=== PATIENT | female | born 1930 | race Asian ===

== ENCOUNTER → 2018-08-19 | Outpatient (CLI) | payer MEDICARE, OTHER ==
[2018-04-07 11:00] VITALS: BP 122/78
[~2018-08-19] MED LIST: AMLO5TAB10 PO; HYDR-2761 PO; LISI10TA2 PO; OXYB5TAB7 PO; TRAM50TA PO
== END | disposition home or self-care (01) ==
LOC: OPS 09:59
PROVIDERS: ATTEND Family Medicine
DX: R33.9 Retention of urine, unspecified (principal)
CPT/HCPCS: 51798

== ENCOUNTER → 2018-08-29 | Outpatient (CLI) | payer MEDICARE, OTHER ==
[2018-04-07 11:00] VITALS: BP 122/78
--- NOTE | 2018-08-29 11:46 | KCIC ---
MRI Lumbar Spine without contrast History: Lower extremity weakness bilaterally, history of cervical cancer and radiation, fall December 2017, low back pain into the left leg and hip Technique: Multiplanar, multi sequential noncontrast MR imaging was performed of the lumbar spine. Comparison: There is no previous MRI exam available, correlation made with August 12, 2018 lumbar spine radiographs Findings: There is some motion degradation. There is L1 compression fracture with some edema more anteriorly signified by STIR hyperintense and T1 hypointense signal, minimal osseous retropulsion superiorly without spinal stenosis. There is old compression deformity inferiorly of L2, centrally and superiorly of L3, also superiorly of L4. There is prominent edema of the visualized right sacrum and to a lesser degree on the left. There is negligible anterior spondylolisthesis at T12-L1. There is grade 1 anterior spondylolisthesis at L4-5 and L5-S1. There is bilateral L5 spondylolysis. There is fairly advanced degenerative disc disease L5-S1 and greater posteriorly at L3-4, mild degenerative disc disease at L1-L2, L2-3, and moderate degenerative disc disease greater posteriorly at L4-5. Conus terminates near T12-L1. T12-L1: Neural foramina and spinal canal are adequate. There is mild buckling of the ligamentum flavum. L1-L2: There is mild facet degenerative change and buckling of the ligamentum flavum. There is minimal posterior narrowing of the left neural foramen, right neural foramen adequate. Spinal canal is adequate. L2-L3: There is disc osteophyte complex and bulge. There is [id number] buckling of the ligamentum flavum. There is mild facet degenerative change. There is mild narrowing of the far left lateral recess. There is mild narrowing of the left neural foramen, right neural foramen not significantly narrowed. L3-L4: There is moderate to severe buckling of the ligamentum flavum and mild facet degenerative change. There is broad posterior disc osteophyte complex and superimposed broad protrusion. Combination of findings results in fairly severe spinal stenosis with left greater than right lateral recess stenosis, some preserved subarachnoid space. There is contact of the descending L4 nerve roots in the lateral recesses. There is moderate to severe narrowing of the right neural foramen with contact exiting right L3 nerve root, inferior narrowing by disc osteophyte complex. There is mild narrowing of the left neural foramen. L4-L5: There is moderate facet hypertrophic change. There is ccdo-mo-memqchag buckling of the ligamentum flavum on the left, minimally on the right. There is mild partial uncovering of the posterior aspect of the disc due to spondylolisthesis, superimposed disc osteophyte complex. There is moderate narrowing of the far lateral recess, contact descending left L5 nerve root. There is severe narrowing of the right neural foramen with contact exiting right L4 nerve root. Left neural foramen is adequate. L5-S1: There is moderate facet degenerative change. Spinal canal is adequate. There is mild partial uncovering of the posterior aspect of the disc due to spondylolisthesis and superimposed minimal disc ossify complex. There is fairly severe narrowing of the left neural foramen with contact exiting left L5 nerve root, moderate narrowing on the right with contact undersurface exiting right L5 nerve root. Impression: 1. There is edema associated with L1 compression fracture more anteriorly. This is possibly due to more recent fracture superimposed on chronic fracture given more isolated edema anteriorly. There are recent sacral fractures bilaterally greater on the right. There are old compression fractures L2-L4. 2. There is abnormal alignment most notable grade 1 anterior spondylolisthesis at L4-5 and L5-S1. There is bilateral L5 spondylolysis. 3. There is multilevel variable degenerative disc disease greatest L3-4 and L5-S1. 4. There is multilevel neural foramina compromise, more significant narrowing left greater than right at L5-S1 and on the right at L4-5 and L3-4. Electronically signed by: Jagdish Rodriguez MD (08/29/2018 11:43 AM) [facility]
--- NOTE | 2018-08-29 15:04 | KCIC ---
Indication: Postmenopausal screening for osteoporosis. COMPARISON: None available. Bone Density: -BMD: (g/cm2) - AP Spine Total (L1-L4).......... 0.636. - Total right Hip................. 0.478. T-Score: - AP Spine Total (L1-L4)......... -3.7. - Total right Hip................. -3.8. World Health Organization criteria for BMD interpretation classify patients as Normal (T-score at or above -1.0), Osteopenic (T-score between -1.0 and -2.5), or Osteoporotic (T-score at or below -2.5). Impression: 1. AP Spine Total L1-L4--- osteoporosis. 2. Total right Hip--- osteoporosis. Electronically signed by: Scott Castro MD (08/29/2018 3:01 PM) [email or web address]
== END | disposition home or self-care (01) ==
LOC: KCIC MRI 09:01
PROVIDERS: ATTEND Family Medicine
DX: M81.0 Age-related osteoporosis without current pathological fracture (principal); M48.56XA Collapsed vertebra, not elsewhere classified, lumbar region, initial encounter for fracture; M43.17 Spondylolisthesis, lumbosacral region; M43.15 Spondylolisthesis, thoracolumbar region; M51.37 Other intervertebral disc degeneration, lumbosacral region; M48.07 Spinal stenosis, lumbosacral region; N95.9 Unspecified menopausal and perimenopausal disorder; Z85.41 Personal history of malignant neoplasm of cervix uteri; Z92.3 Personal history of irradiation
CPT/HCPCS: 72148; 77080

== ENCOUNTER → 2018-10-20 | Outpatient (CLI) | payer MEDICARE, MEDICAID ==
[2018-04-07 11:00] VITALS: BP 122/78
--- NOTE | 2018-10-20 23:38 | PAIN ---
DATE OF SERVICE: 10/20/2018 INITIAL CONSULTATION FOR PAIN CLINIC CHIEF COMPLAINT: Low back and right lower extremity pain. HISTORY OF PRESENT ILLNESS: This is an 88-year-old female who presents with pain after falling since December 2017 and pain has been present. The patient's son is with her and serves as quenching car operator as the patient is Laotian and does not speak Israeli. The patient reports the pain is getting worse over the past year or so in the low back, right lower extremity, posterior gluteus, posterior lateral thigh, lateral anterior thigh, anterior medial thigh, medial ankle and into the posterior calf as well as the right leg, but not into the foot or toes. The patient reports it is stabbing with numbness and radiating into the right leg and foot, worse with walking and standing. The patient reports it awakens her from sleep about 5-7 times at night. It does not affect her bowel or bladder control, but does affect her ability to walk. She is using a walker or wheelchair combination today. The patient is taking pain medication that does decrease the pain, she is not certain of the name of it at this time and that is pending at time of this dictation. The patient did have an MRI scan of the lumbar spine dated 08/29/2018 showing moderate facet hypertrophic changes at L3-L4, L4-L5 and L5-S1 with severe spinal stenosis, previous broad-based posterior disk osteophyte complex at L3-L4 contacting the descending L4 nerve root and lateral recess with moderate to severe narrowing of the right neural foramen with contact at exiting right L3 nerve root. L4-L5 shows significant stenosis as well with severe narrowing of the right neural foramen with contacting the right L4 nerve root and moderate narrowing of the far lateral recess contacting descending left L5 nerve root. L5-S1 shows moderate facet change and degenerative change, fairly severe narrowing at L5-S1 on the left neural foramen with contacting the exiting left L5 nerve root and moderate narrowing of the right with contacting dorsal surface of exiting right L5 nerve root. The patient's disability rate is from 0-10, 10 being the worst, is a 10 with family and home responsibilities, 8 with recreation, 9 with occupation and 9 with self-care activities. The patient has done physical therapy, which was not significantly helpful. This was done as a home physical therapy service in December 2017, also doing exercise since that time as well and continues to do the stretching exercises without significant decrease in pain. The patient reports no loss of motor function, but significant fatigability in the right leg with walking, standing and changing positions. The patient describes the pain as stabbing with numbness and radiation. PAST MEDICAL HISTORY: Significant for hearing loss, previous left hip fracture, which was fixed surgically. Otherwise, the patient has been in fairly good health by her report. CURRENT MEDICATIONS: Complete, full and well documented on the patient's chart. ALLERGIES: The patient has no known drug allergies. FAMILY HISTORY: Significant for no major medical problems or conditions that she lists. SOCIAL HISTORY: The patient does not drink alcohol, does not smoke and does not use any illegal, illicit or recreational drugs. Lives with her son locally in [place], [place] and is . REVIEW OF SYSTEMS: The patient's review of systems is positive for those items mentioned in history of present illness. All systems reviewed and otherwise negative. It is complete, full and well documented on the patient's chart. PHYSICAL EXAMINATION: VITAL SIGNS: The patient's blood pressure is 133/71, pulse 51, respirations 18, temperature is 98.1 degrees Fahrenheit. Height is 5 feet 1 inch, weight 97 is pounds. GENERAL: The patient is awake, alert, oriented, appropriate, very pleasant demeanor. Again, the patient is accompanied by her son who serves as border patrol officer. HEEN: Head shows normocephalic, atraumatic. Extraocular movements are intact and symmetrical. Oral cavity: Mucous membranes are moist and pink. Dentition is intact. NECK: Shows anterior throat supple without palpable lymphadenopathy noted. Swallow reflex symmetrical. CHEST: Shows normal with inspection. Breath sounds clear to auscultation bilaterally. HEART: Shows S1, S2 clear. No murmurs auscultated. ABDOMEN: Soft, nontender, nondistended. No palpable organomegaly is noted. No rebound or guarding demonstrated. BACK: Shows spine grossly in the midline. Normal appearing thoracic kyphosis and minor flattening of lumbar lordotic curvature. Lumbar paraspinous muscle shows symmetrical on inspection, on palpation shows some moderate tenderness diffusely, but only diffusely without significant radiation. The patient's lower extremities show deep tendon reflexes at 1+ in the patellar and tendo calcaneus tendons are equal. Motor exam is approximately 4 on a scale of 5 on the right, 5/5 on the left with dorsiflexion, extension, quadriceps and hamstring flexion. Peripheral pulses are 1+ posterior tibial. No peripheral edema is noted bilaterally. The patient's straight leg raise is noted to be positive on the right at about 35 degrees. Left side is negative. Gaenslen's and Arnav's maneuvers are negative bilaterally. The patient is able to stand, stand on her toes, but is very unstable and is unsure of redirections when asked to do this. She is ambulating with a significant shuffling gait, does appear to favor the right lower extremity and using a walker to ambulate, which she has with her now. SKIN: Shows warm and dry, good turgor. No edema. No sores, rashes or bruises noted. IMPRESSION: 1. This is an 88-year-old female with approximately 1-year history of pain, low back, right lower extremity in a radicular fashion. 2. MRI scan of lumbar spine as noted. PLAN: Options were discussed with the patient including conservative medical management, physical therapy, interventional techniques and she would like to pursue interventional techniques. We discussed a lumbar epidural steroid injection using description as well as anatomical models to describe the procedure today. Risks were then discussed including, but not limited to, bleeding, infection, possibility of epidural hematoma, subsequent neurological compromise, dural puncture, headaches, spinal cord and/or nerve damage, side effects of steroid medication and poor results regarding pain control. The patient understands and wished to proceed. The patient will return to the clinic in approximately 2 weeks for followup, was counseled as to return appointment, activity level and side effects to be aware of. DIAGNOSES: Lumbar radiculopathy with lumbar degenerative disk disease and lumbar spinal stenosis. PROCEDURE: Lumbar epidural steroid injection, translaminar approach at L4-L5 level using C-arm fluoroscopic guidance under sterile prep and drape using local anesthetic. MEDICATION INJECTED: A total of 120 mg Depo-Medrol plus 10 mL of preservative-free normal saline and 2 mL of Isovue for contrast. CONDITION ON DISCHARGE: Stable. The patient tolerated the procedure well, had no complications. RADHA FERGUSON MD DR: SANTO/thu JOB#: [id number] / [id number] SALEEM Salazar MD
== END ==
LOC: PNCL 08:43
PROVIDERS: ATTEND Anesthesiology
DX: M51.16 Intervertebral disc disorders with radiculopathy, lumbar region (principal); M48.061 Spinal stenosis, lumbar region without neurogenic claudication; Z98.890 Other specified postprocedural states
CPT/HCPCS: 62323

== ENCOUNTER → 2018-10-22 | Outpatient (CLI) | payer MEDICARE, MEDICAID ==
[2018-04-07 11:00] VITALS: BP 122/78
[~2018-10-22] MED LIST changes: +MIDAZOLAM HCL/PF 5 MG/5 ML VIAL. ONE; +fentaNYL PF VIAL 250 MCG/5 ML VIAL ONE
--- NOTE | 2018-10-22 08:39 | NUR ---
Pt procedure cancelled per Dr Thakur, family and pt spoke to MD and pt released to home. DEJAN MCGOWAN
--- NOTE | 2018-10-22 09:14 | PDOC ---
Provider Note Provider Note IR NOTE (Brief) I saw Mrs Moffett in consultation for possible L1 vertebral augmentation. Her son was present and served as a mud analysis supervisor during the encounter. She had a fall with multiple fractures last fall. She has had ongoing pain since then. For me, she describes the pain as predominantly in her right buttock and right lower extremity. The pain is paroxysmal and limits ambulation. She also notes some intermittent left lower extremity numbness. She denies back pain iver the L1 level, or at the thoracolumbar junction at current time, or in the recent past. No tenderness in the area was found with palpation, or motion, though this did illicit RLE pain. We reviewed her MRI and the indications, risks , and benefits of vertebral augmentation. We talked about her DEXA scan. She is not a good candidate for vertebral augmentation at this time, mainly due to her lack of symptoms. I explained that she is high risk for subsequent fractures given her severe bone demineralization, and her Son relayed that they are working with her other doctors on this. She is free to follow up with me with any further questions/concerns. JUSTINA HENRY MD Oct 22, 2018 09:14
== END ==
LOC: INTRAD 08:04
PROVIDERS: ATTEND Neurological Surgery
DX: M54.5 Low back pain (principal); Z53.8 Procedure and treatment not carried out for other reasons

== ENCOUNTER → 2018-11-03 | Outpatient (CLI) | payer MEDICARE, MEDICAID ==
[2018-04-07 11:00] VITALS: BP 122/78
[~2018-11-03] MED LIST changes: +IOHEXOL 180 MG/ML 10 ML VIAL. ONE; -MIDAZOLAM HCL/PF 5 MG/5 ML VIAL. ONE; -fentaNYL PF VIAL 250 MCG/5 ML VIAL ONE; +methylPREDNISolone ACETATE 40 MG/ML VIAL. ONE; +methylPREDNISolone ACETATE 80 MG/ML VIAL. ONE
--- NOTE | 2018-11-03 10:29 | PAIN ---
DATE OF SERVICE: 11/03/2018 PROGRESS NOTE FOR PAIN CLINIC DIAGNOSES: Lumbar radiculopathy with lumbar degenerative disk disease and lumbar spinal stenosis. HISTORY OF PRESENT ILLNESS: The patient is an 88-year-old female who returns for followup status post lumbar epidural steroid injection x 1. The patient's son is with her who serves as automotive parts interpreter and reports about 30% to 50% improvement after the first injection. She had been increasing her activity with greater distance walking, greater activities around the home and traveling with greater ease, also transferring from chair to seated and standing positions much more comfortably. The patient reports pain is a 5 on a scale of 10 at its worst over the past week, 4 on average and 4 at its least and is a 4 today. The patient reports it is dull with some cramping in the right leg as well with activity. The patient reports pain is dull in the low back and cramping and shooting in the right lower extremity. The patient reports no new motor or sensory deficits, no new bowel or bladder incontinence or other complaints. PHYSICAL EXAMINATION: VITAL SIGNS: The patient's blood pressure is 126/63, pulse 64, respirations are 18 and temperature 98.1 degrees Fahrenheit. Height is 5 feet 1 inch, weight is 93 pounds. GENERAL: The patient is awake, alert, oriented, appropriate, very pleasant demeanor. HEENT EXAMINATION: Shows normocephalic, atraumatic. Extraocular movements are intact and symmetrical. Oral cavity, mucous membranes are moist and pink. Dentition is intact. NECK: Shows anterior throat supple, without palpable lymphadenopathy noted. Swallow reflex is symmetrical. CHEST: Shows normal on inspection. Breath sounds are clear to auscultation bilaterally. HEART: Shows S1, S2 clear. No murmurs auscultated. ABDOMEN: Soft, nontender and nondistended. No palpable organomegaly is noted. No rebound or guarding demonstrated. BACK: Shows spine grossly in the midline. Normal-appearing thoracic kyphosis and lumbar lordotic curvatures. Lumbar paraspinous muscle shows symmetrical on inspection. On palpation, it shows some moderate tenderness diffusely bilaterally, but only diffusely, without radiation. The patient has good rotational motion of the lumbar spine, both laterally as well as extension and flexion, without significant difficulty. EXTREMITIES: The patient's lower extremities show deep tendon reflexes at 1+ in the patellar and tendo calcaneus tendons. Motor exam is approximately 4 on a scale of 5 on the right and 5/5 on the left with dorsiflexion and extension. Peripheral pulses are 1+ posterior tibial. No peripheral edema is noted bilaterally. Options were discussed with the patient. The patient's old chart was reviewed as was her current medication regimen updated. Current review of systems updated today as well. We will proceed with a second in the series of lumbar epidural steroid injection with fluoroscopic guidance. Risks were again discussed including, but not limited to, bleeding, infection, possibility of epidural hematoma, subsequent neurologic compromise, dural puncture, headaches, spinal cord and/or nerve damage, side effects of steroid medication and poor results regarding pain control. The patient understands and wishes to proceed. The patient will return to the clinic in approximately 2 weeks for followup. She was counseled on her return appointment, activity level and side effects to be aware of. DIAGNOSES: Lumbar radiculopathy with lumbar degenerative disk disease and lumbar spinal stenosis. PROCEDURE: Lumbar epidural steroid injection in a translaminar approach at L4-L5 level using C-arm fluoroscopic guidance under sterile prep and drape using local anesthetic. MEDICATION INJECTED: A total of 120 mg Depo-Medrol plus 10 mL of preservative-free normal saline and 2 mL of contrast. CONDITION AT DISCHARGE: Stable. The patient tolerated the procedure well, had no complications. RADHA FERGUSON MD DR: SANTO/thu JOB#: [id number] / [id number]
== END ==
LOC: PNCL 08:26
PROVIDERS: ATTEND Anesthesiology
DX: M51.16 Intervertebral disc disorders with radiculopathy, lumbar region (principal); M48.061 Spinal stenosis, lumbar region without neurogenic claudication
CPT/HCPCS: 62323; J1030; J1040; Q9965

== ENCOUNTER → 2018-12-09 | Outpatient (CLI) | payer MEDICARE, MEDICAID ==
[2018-04-07 11:00] VITALS: BP 122/78
--- NOTE | 2018-12-09 12:28 | PAIN ---
DATE OF SERVICE: 12/09/2018 PROGRESS NOTE FOR PAIN CLINIC DIAGNOSES: Lumbar radiculopathy with lumbar degenerative disk disease, lumbar spinal stenosis. HISTORY OF PRESENT ILLNESS: The patient is an 88-year-old female who returns for followup status post lumbar epidural steroid injection x 2. The patient's son accompanies her and acts as a wood router hand. The patient reports approximately 50% improvement with increased ability to change positions and with her mobility much improved. The patient reports she still has some numbness in the left leg, but otherwise mobility and pain is much decreased. The patient reports her pain is a 5 on a scale of 10 at its worst over the past week, 4 on average, 4 at its least and is a 4 today. The patient reports it is dull, on and off in intensity, worse with weightbearing, standing, but is doing better with changing positions and mobility than she was. The patient reports the sharp pain is gone, but still some numbness remains in the left leg. The patient reports no new motor or sensory deficits, no new bowel or bladder incontinence, reports she is sleeping well at night. PHYSICAL EXAMINATION: VITAL SIGNS: The patient's blood pressure 123/68, pulse 81, respirations 18, temperature 98.4 degrees Fahrenheit, height is 5 feet 1 inch. GENERAL: The patient is awake, alert, oriented, appropriate, very pleasant demeanor. HEENT: Head is normocephalic, atraumatic. Extraocular movements are intact and symmetrical. Oral cavity, mucous membranes are moist and pink. NECK: Shows anterior throat supple. Swallow reflex is symmetrical. CHEST: Shows normal on inspection. Breath sounds are clear to auscultation bilaterally. HEART: Shows S1, S2 clear. No murmurs auscultated. ABDOMEN: Soft, nontender, nondistended. No palpable organomegaly is noted. No rebound or guarding demonstrated. BACK: Shows spine grossly in the midline. Slight exaggeration of thoracic kyphosis, mild flattening of lumbar lordotic curvature. Lumbar paraspinous muscle shows symmetrical on inspection, on palpation shows some moderate tenderness diffusely bilaterally, but only diffusely without radiation. The patient has good rotational motion of lumbar spine, both laterally as well as extension and flexion without significant increase in pain. EXTREMITIES: Lower extremities show deep tendon reflexes 1+ in the patellar and tendo calcaneus tendons. Motor exam is strong with approximately 4 on a scale of 5 on the right with dorsiflexion, 5/5 on the left. Peripheral pulses are 1+ posterior tibial. No peripheral edema is noted bilaterally. Options were discussed with the patient. The patient's old chart was reviewed as her current medication regimen updated. Current review of systems updated today as well. We will proceed with a third in the series of lumbar epidural steroid injection today with fluoroscopic guidance. Risks were again discussed including, but not limited to bleeding, infection, possibility of epidural hematoma, subsequent neurologic compromise, dural puncture, headaches, spinal cord and/or nerve damage, side effects of steroid medication and poor results regarding pain control. The patient understands and wished to proceed. The patient will return to clinic in approximately 2 weeks for followup, was counseled on return appointment, activity level and side effects to be aware of. DIAGNOSES: Lumbar radiculopathy with lumbar degenerative disk disease, lumbar spinal stenosis. PROCEDURE: Lumbar epidural steroid injection, translaminar approach at L4-L5 level using C-arm fluoroscopic guidance under sterile prep and drape using local anesthetic. MEDICATION INJECTED: Total of 120 mg of Depo-Medrol plus 10 mL of preservative-free saline and 2 mL of contrast. CONDITION AT DISCHARGE: Stable. The patient tolerated the procedure well, had no complications. RADHA FERGUSON MD DR: SANTO/thu JOB#: [id number] / [id number]
== END ==
LOC: PNCL 08:22
PROVIDERS: ATTEND Anesthesiology
DX: M51.16 Intervertebral disc disorders with radiculopathy, lumbar region (principal); M48.061 Spinal stenosis, lumbar region without neurogenic claudication
CPT/HCPCS: 62323; J1030; J1040; Q9965